=== PATIENT | male | born 1945 | race Caucasian/White ===

== ENCOUNTER 2017-06-22 21:53 | Emergency (ER) | payer BC ==
[2017-06-22] MEDS ORDERED: ALBUTEROL 3 ML DEYVIAL ONE (22:05)
--- NOTE | 2017-06-22 22:05 | CPEKG ---
Heart Rate: 91 RR Interval: 659 P-R Interval: 180 QRSD Interval: 76 QT Interval: 360 QTC Interval: 443 P [place]: 44 QRS [place]: 47 T Wave [place]: -60 EKG Severity - BORDERLINE ECG - EKG Impression: SINUS RHYTHM EKG Impression: PROBABLE LEFT ATRIAL ABNORMALITY EKG Impression: BORDERLINE T ABNORMALITIES, INFERIOR LEADS EKG Impression: Unchanged when compared to EKG from June 14, 2009 Electronically Signed By: Mando Barajas 23-Jun-2017 01:16:23
[2017-06-22] MEDS ORDERED: IPRATROPIUM/ALBUTEROL 3 ML DEYVIAL IH ONE (22:12)
--- NOTE | 2017-06-22 22:12 | EDPHY ---
H & P Stated Complaint: DYSPNEA STARTING 30 MIN [facility] Time Seen by Provider: 06/22/17 22:05 HPI/ROS: CHIEF COMPLAINT: Shortness of breath HISTORY OF PRESENT ILLNESS: 72 year-old male without any a known underlying lung illness noted onset of shortness of breath some 30 min ago. Earlier this evening, had dinner he felt well as through the course of the rest of the evening. He cannot recall any stimulus that might have precipitated this. He does have a remote history of problems with a mold exposure some 8 years ago- 2008, but does not recall a specific residual problem after that particular exposure. Along with this he is having a sense of mucus production and difficulty mobilizing the secretions - there is no hemoptysis or pink phlegm He is not a smoker. He has had no recent URI. No known allergens or new exposure. No recent immobilization or calf pain or prior history of DVT or PE. Most recently has not noted a difficulty with exertion or decrease in exercise capacitance. There is no discomfort. He has had a sense of tightness over the front of the neck as he is having difficulty breathing. Is not a discomfort. He does have a longstanding history of reflux esophagitis. GERD. He often gets water brash. In fact later in the course of his visit here we decided in talking that he has he was laying down when this started that is probably what happened to trigger this whole event - notably he had put his hand across his neck and the initial interview to show that is was kind of a restriction to his breathing or raspiness to his voice that is uncharacteristic for him. P: No pain Q: Not applicable R: Not applicable S: Moderate to severe respiratory distress T: Onset just prior to admission REVIEW OF SYSTEMS: Constitutional: No fever, no chills. Eyes: No discharge ENT: No sore throat. Cardiovascular: No chest pain, no palpitations. Respiratory: No cough, shortness of breath, or wheezing. Gastrointestinal: No nausea vomiting or diarrhea. No abdominal pain. Genitourinary: No hematuria or frequency. Musculoskeletal: No back pain. Skin: No rashes. Neurological: No headache. 10 point ROS otherwise negative Source: Patient Exam Limitations: No limitations - Personal History Current Tetanus/Diphtheria Vaccine: Yes Current Tetanus Diphtheria and Acellular Pertussis (TDAP): Yes Tetanus Vaccine Date: <10yrs - Medical/Surgical History Hx Asthma: No Hx Chronic Respiratory Disease: No Hx Diabetes: No Hx Cardiac Disease: No Hx Renal Disease: No Hx Cirrhosis: No Hx Alcoholism: No Hx HIV/AIDS: No Hx Splenectomy or Spleen Trauma: No Other PMH: Thyroid. PCP [facility] [place] [facility] - Social History Smoking Status: Never smoked Alcohol Use: None Drug Use: None - Physical Exam Exam: General Appearance: Alert, appears in moderate respiratory distress with some accessory muscles to movement and speaking in short sentences. Afebrile. Normal phonation. Eyes: Pupils equal and round no pallor or injection. No icterus ENT, Mouth: Mucous membranes slightly dry Pharynx without erythema or exudate. TM Clear. Neck: No adenopathy. Supple. No JVD. Trachea in midline. Respiratory: There are supraclavicular retractions, lungs show poor air entry and increased effort with mild wheezes.. Chest wall: Nontender to palpation. No crepitus. Cardiovascular: Regular rate and rhythm, without murmur. Abdomen: Soft and nontender, no masses, bowel sounds normal. Neurological: Ox3. No motor weakness. Sensation intact. Gait nl. Skin: Warm and dry, no rashes. Musculoskeletal: No joint swelling. Extremities: No edema. Homans sign negative. No cords. Psychiatric: Normal affect. Patient is oriented X 3. There is no agitation Constitutional: Initial Vital Signs Temperature (C) 36.5 C 06/22/17 21:57 Heart Rate 88 06/22/17 21:57 Respiratory Rate 20 06/22/17 21:57 Blood Pressure 160/100 H 06/22/17 21:57 O2 Sat (%) 89 L 06/22/17 21:57 O2 Delivery Mode Room Air O2 (L/minute) 4 Allergies/Adverse Reactions: MOLD Allergy (Severe, Uncoded 04/21/16 18:40) Anaphylaxis Home Medications: Medication Instructions Recorded Dexlansoprazole [Dexilant] 30 mg PO DAILY 11/07/14 Albuterol [Proventil Inhaler HFA 2 puffs IH Q4H PRN #1 mdi 06/23/17 (*)] predniSONE [Prednisone] 30 mg PO BID #42 tablet 06/23/17 Medical Decision Making - Diagnostics EKG Interpretation: Ekg interpreted by me contemporaneously - See seperate report in [facility]. Summary: Normal sinus rhythm. Poor R-wave progression across precordium verses the perc lead placement. Nonspecific changes seen in V4 V5 and V6 as well as these 2 3 and F as compared to the EKG from June 14, 2009 this is essentially unchanged. Imaging Results: Imaging Impressions Chest X-Ray 06/22/17 22:34 Impression: 1. Large hiatal hernia. 2. No definite acute cardiopulmonary process. Films reviewed by me on the [place] system. Large hiatal hernia appreciated as noted above ED Course/Re-evaluation: At the initial assessment he was started on a stat treatment of a DuoNeb and he had a moderate, distinct improvement. With this there is improved aeration, more audible wheezes, he was able to speak in full sentences but nothing more than that. His accessory muscle use abated. Also started on prednisone Checked after the 3rd treatment and continued to be mildly but diffusely wheezy with sonorous rhonchi and reports market improvement. However oxygen levels are low at times 1240 - O2 sat fluctuating with a good wave form. Fibrotic sounding BS with notably less bronchospasm then when he arrived as well as when I checked him after nebs 1 and 3. Thus, will await for the Prednisone to kick in keeping him for several hours on supplemental O2. Laboratory review: Normal a just a D-dimer Normal white count normal Chest x-ray. Showed no pneumonia though there was a large hiatal hernia. At this juncture, I discussed the prospect of signing him to [facility] for admission for continued oxygen therapy versus overnight observation here and a revisit of his oxygen status on room air as he was between 88 and 89, on room air. Wanted to do just that. He rested comfortably and I visited into listened to him throughout the night on a several occasions. He is resting uneventfully without significant coughing her progress passing. We kept him on oxygen and his O2 side however between 92 and 94. I will, around 5. His blood pressure was a little on the soft side, around 99, but he just woke up. His blood pressure improved is a drink a large glass of ice water and became more alert. Ambulatory O2 sats however to around 89 to 90. Discharge plan reviewed with the patient to include the following: Proventil inhaler - p.r.n. but in particular feels going up to the colder exposed to fumes or other precipitants Spacer Prednisone without taper-taper to be determined by his PCP Follow up with PCP in 3-5 days. Return if fever. Differential Diagnosis: Differential diagnosis includes but is not limited to the following: ACS, myocardial infarction, pneumothorax, pleurisy, pulmonary embolus, CHF, Pneumonia, bronchospasm, Asthma, anxiety, muscle strain. - Data Points Laboratory Results: Laboratory Results 06/22/17 22:19 06/22/17 22:19 06/22/17 06/22/17 06/22/17 22:19 22:19 22:19 WBC 5.48 10^3/uL 10^3/uL (3.80-9.50) RBC 4.40 10^6/uL 10^6/uL (4.40-6.38) Hgb 15.0 g/dL g/dL (13.7-17.5) Hct 44.2 % % (40.0-51.0) MCV 100.5 fL H fL (81.5-99.8) MCH 34.1 pg pg (27.9-34.1) MCHC 33.9 g/dL g/dL (32.4-36.7) RDW 12.6 % % (11.5-15.2) Plt Count 258 10^3/uL 10^3/uL (150-400) MPV 10.0 fL fL (8.7-11.7) Neut % (Auto) 66.8 % % (39.3-74.2) Lymph % (Auto) 16.1 % % (15.0-45.0) [place] % (Auto) 9.9 % % (4.5-13.0) Eos % (Auto) 6.4 % % (0.6-7.6) Baso % (Auto) 0.4 % % (0.3-1.7) Nucleat RBC Rel Count 0.0 % % (0.0-0.2) Absolute Neuts (auto) 3.67 10^3/uL 10^3/uL (1.70-6.50) Absolute Lymphs (auto) 0.88 10^3/uL L 10^3/uL (1.00-3.00) Absolute Monos (auto) 0.54 10^3/uL 10^3/uL (0.30-0.80) Absolute Eos (auto) 0.35 10^3/uL 10^3/uL (0.03-0.40) Absolute Basos (auto) 0.02 10^3/uL 10^3/uL (0.02-0.10) Absolute Nucleated RBC 0.00 10^3/uL 10^3/uL (0-0.01) Immature Gran % 0.4 % % (0.0-1.1) Immature Gran # 0.02 10^3/uL 10^3/uL (0.00-0.10) D-Dimer 0.50 ug/mLFEU ug/mLFEU (0.00-0.50) VBG Lactic Acid Sodium 144 mEq/L mEq/L (134-144) Potassium 4.2 mEq/L mEq/L (3.5-5.2) Chloride 102 mEq/L mEq/L (97-110) Carbon Dioxide 28 mEq/l mEq/l (22-31) Anion Gap 14 mEq/L mEq/L (8-16) BUN 20 mg/dL mg/dL (7-23) Creatinine 1.0 mg/dL mg/dL (0.7-1.3) Estimated GFR > 60 Glucose 141 mg/dL H mg/dL (70-100) Calcium 9.2 mg/dL mg/dL (8.5-10.4) Troponin I < 0.012 ng/mL ng/mL (0.000-0.034) NT-Pro-B Natriuret Pep 39 pg/mL pg/mL (0-125) 06/22/17 22:19 WBC RBC Hgb Hct MCV MCH MCHC RDW Plt Count MPV Neut % (Auto) Lymph % (Auto) [place] % (Auto) Eos % (Auto) Baso % (Auto) Nucleat RBC Rel Count Absolute Neuts (auto) Absolute Lymphs (auto) Absolute Monos (auto) Absolute Eos (auto) Absolute Basos (auto) Absolute Nucleated RBC Immature Gran % Immature Gran # D-Dimer VBG Lactic Acid 1.2 mmol/L mmol/L (0.7-2.1) Sodium Potassium Chloride Carbon Dioxide Anion Gap BUN Creatinine Estimated GFR Glucose Calcium Troponin I NT-Pro-B Natriuret Pep Medications Given: Discontinued Medications Albuterol (Proventil Neb) 3 ml IH EDNOW ONE Stop: 06/22/17 22:36 Last Admin: 06/22/17 23:04 Dose: 3 ml Albuterol (Proventil Neb) 3 ml IH EDNOW ONE Stop: 06/22/17 22:37 Last Admin: 06/22/17 23:05 Dose: 3 ml Albuterol (Proventil Neb) 3 ml IH EDNOW ONE Stop: 06/23/17 05:07 Last Admin: 06/23/17 05:07 Dose: 3 ml Albuterol Sulfate (Proventil Inh Prepack) 1 mdi TAKEHOME EDNOW ONE Stop: 06/23/17 05:40 Last Admin: 06/23/17 05:40 Dose: 1 mdi Albuterol/Ipratropium (Duoneb) 3 ml IH EDNOW ONE Stop: 06/22/17 22:13 Last Admin: 06/22/17 22:21 Dose: 3 ml Albuterol/Ipratropium (Duoneb) 3 ml IH EDNOW ONE Stop: 06/23/17 00:30 Last Admin: 06/23/17 00:30 Dose: 3 ml Prednisone (Prednisone) 60 mg PO EDNOW ONE Stop: 06/22/17 22:36 Last Admin: 06/22/17 23:04 Dose: 60 mg Departure - Departure Disposition: Home, Routine, Self-Care Clinical Impression: Laryngospasm, Bronchospasm Acid reflux Qualifiers: Esophagitis presence: esophagitis presence not specified Qualified Code(s): K21.9 - Gastro-esophageal reflux disease without esophagitis Condition: Good Instructions: Albuterol (By breathing), Prednisone (By mouth), Gastroesophageal Reflux Disease (ED), Bronchospasm (ED), Laryngospasm (DC) Additional Instructions: Proventil inhaler - this is to be used as needed when you feel short of breath. However during this weekend do take it before bedtime as well as when you go out. The particularly cautious as opposed to be quite cold and that may trigger some spasm of the bronchial tubes. Spacer - to be use with the inhaler for more efficient delivery Prednisone without taper-taper to be determined by his PCP - next dose this morning Take your Dexilant twice daily for the next week Use a wedge so that she sleep somewhat sitting upright. Follow up with PCP in 3-5 days - call thing Sunday as Sunday is a holiday Return if fever, or progressive cough ensues Referrals: Shiv Rasmussen MD [Primary Care Provider] - As per Instructions Prescriptions: Albuterol [Proventil Inhaler HFA (*)] 2 puffs IH Q4H PRN #1 mdi PRN Reason: shortness of breath predniSONE [Prednisone] 30 mg PO BID #42 tablet
[2017-06-22 22:27] LABS: PLATELET COUNT 258 10^3/uL (150-400)
[2017-06-22] MEDS ORDERED: predniSONE 20 MG TAB PO ONE (22:35)
[2017-06-22] MEDS ORDERED: ALBUTEROL 3 ML DEYVIAL IH ONE ×2 (22:35→22:36)
[2017-06-23] MEDS ORDERED: IPRATROPIUM/ALBUTEROL 3 ML DEYVIAL ONE (00:13)
[2017-06-23] MEDS ORDERED: IPRATROPIUM/ALBUTEROL 3 ML DEYVIAL IH ONE (00:29)
[2017-06-23] MEDS ORDERED: ALBUTEROL 3 ML DEYVIAL ONE (04:02)
[2017-06-23] MEDS ORDERED: ALBUTEROL 3 ML DEYVIAL IH ONE (05:06)
[2017-06-23 05:13] VITALS: PULSE 86
[2017-06-23] MEDS ORDERED: ALBUTEROL INH PREPACK MDI TAKEHOME ONE ×2 (05:36→05:39)
[2017-06-23 05:58] VITALS: BP 116/84; RESP 20; TEMP 98.6; O2SAT 94
== END 2017-06-23 06:25 | disposition home or self-care (01) ==
LOC: CED 21:53
DX: J98.01 Acute bronchospasm (principal); J38.5 Laryngeal spasm; K21.9 Gastro-esophageal reflux disease without esophagitis
CPT/HCPCS: 71020-PO; 80048-PO; 83605-PO; 83880-PO; 84484-PO; 85025-PO; 85378-PO; J1200

== ENCOUNTER → 2018-07-30 | Outpatient (CLI) | payer BC | LOC: BMCIMAGING 15:59 | PROVIDERS: ATTEND Internal Medicine | DX: R05 Cough (principal); K44.9 Diaphragmatic hernia without obstruction or gangrene ==